=== PATIENT | female | born 1955 | race Caucasian/White ===

== ENCOUNTER 2017-08-24 10:49 | Emergency (ER) | payer OTHER ==
[~2017-08-24] VITALS: Ht 160 cm; Wt 72.6 kg
[2017-08-24 10:55] VITALS: BP 151/67
--- NOTE | 2017-08-24 11:26 | NUR ---
RADIOLOGY AT BEDSIDE FOR L KNEE XRAY.
--- NOTE | 2017-08-24 11:35 | NUR ---
SANDY WRAP APPLIED. PT D/C HOME IN STABLE CONDITION.
== END 2017-08-24 11:44 | disposition home or self-care (01) ==
LOC: ER 10:53
DX: M76.52 Patellar tendinitis, left knee (principal)
CPT/HCPCS: 73564; 99284; A4606; Z7610